=== PATIENT | female | born 1990 | race Caucasian/White ===

== ENCOUNTER 2019-07-13 19:16 | Emergency (ER) | payer BC ==
[2019-07-13 19:23] VITALS: BMI 24.9
[2019-07-13] MEDS ORDERED: ACETAMINOPHEN 500 MG TABLET (FP) PO ONE (19:27)
[2019-07-13] MEDS ORDERED: ACETAMINOPHEN 325 MG TABLET (FP) ONE (19:31)
--- NOTE | 2019-07-13 19:43 | PDOC ---
History of Present Illness - General Chief Complaint: Pain, Acute Stated Complaint: SENT BY URGENT CARE/PAIN Time Seen by Provider: 07/13/19 19:25 History Source: Patient Exam Limitations: No Limitations - History of Present Illness Initial Comments: 07/13/19 19:40 28y F with no significant PMH presenting to ED with complaints of intermittent L flank pain that started suddenly today. Pt states she feels the urge to urinate and has L flank pain after urinating. The pain is sharp and does not radiate. Associated with nausea. Denies vomiting, diarrhea, constipation, injury , chest pain, sob, fevers, chills, dysuria, hematuria, vaginal bleeding, discharge. Has not had symptoms like this before. She went to urgent care and was told to come to an ER for possible kidney stones. She had a urinalysis done which was negative for and showed RBC in the urine. She received 60mg IM toradol which helped with the pain 1h ago. Mother has a history of kidney stones. PMD: PMH: none PSH: none Meds: OCPs Allergies: nkda Social: occasional alcohol use 07/13/19 22:01 Past History - Past Medical History Allergies/Adverse Reactions: Allergies Allergy/AdvReac Type Severity Reaction Status Date / Time No Known Allergies Allergy Verified 07/13/19 19:23 Home Medications: Ambulatory Orders Ibuprofen 600 mg PO TID #21 tablet 07/13/19 Sulfamethoxazole/Trimethoprim [Bactrim Ds -] 1 tab PO BID #10 tablet 07/13/19 COPD: No - Psycho Social/Smoking Cessation Hx Smoking History: Never smoked Review of Systems - Review of Systems Constitutional: No: Symptoms Reported HEENTM: No: Symptoms Reported Respiratory: No: Symptoms reported Cardiac (ROS): No: Symptoms Reported ABD/GI: Yes: Nausea : Yes: Flank Pain, Urgency. No: Burning, Dysuria Musculoskeletal: No: Symptoms Reported Integumentary: No: Symptoms Reported *Physical Exam - Vital Signs Last Vital Signs Temp Pulse Resp BP Pulse Ox 98.6 F 78 19 121/75 100 07/13/19 19:20 07/13/19 19:20 07/13/19 19:20 07/13/19 19:20 07/13/19 19:20 - Physical Exam General Appearance: Yes: Nourished, Appropriately Dressed. No: Apparent Distress HEENT: positive: EOMI, IRINA, Normal ENT Inspection Neck: positive: Trachea midline, Supple Respiratory/Chest: positive: Lungs Clear, Normal Breath Sounds. negative: Crackles, Rales, Rhonchi, Stridor, Wheezing Gastrointestinal/Abdominal: positive: Normal Bowel Sounds, Soft. negative: Tender Musculoskeletal: negative: CVA Tenderness Extremity: positive: Normal Capillary Refill. negative: Calf Tenderness, Erythema Integumentary: positive: Normal Color, Dry, Warm Neurologic: positive: presales consultant II-XII NML intact, Fully Oriented, Alert, Normal Mood/ Affect, Normal Response, Motor Strength 01/12 ED Treatment Course - LABORATORY CBC & Chemistry Diagram: 07/13/19 19:50 07/13/19 19:50 Medical Decision Making - Medical Decision Making 07/13/19 21:50 28y F presenting with L flank pain and urgency vitals wnl ddx includes but not limited to stone, uti, pyelo, ovarian torsion, colitis, msk given history and exam, likely stone. will order cbc, cmp, ua, ucx, upreg iv fluids, tylenol ct spiral if ct negative, will perform pelvic and tvus labs wnl. ua 3+ blood, some bacteria, few wbc. low suspicion for septic stone ct shows stone at l uvj or in bladder 4x4mm pending radiologist read pt comfortable, will provide uro referral, strainer and rx for ibuprofen. provided return precautions. has history of utis, will prescribe bactrim. dispo: home Discharge - Discharge Information Problems reviewed: Yes Clinical Impression/Diagnosis: Ureteral calculus, left Condition: Improved Disposition: HOME - Admission No - Additional Discharge Information Prescriptions: Ibuprofen 600 mg PO TID #21 tablet Sulfamethoxazole/Trimethoprim [Bactrim Ds -] 1 tab PO BID #10 tablet - Follow up/Referral Referrals: Francisco Laboy MD [Primary Care Provider] - Sheldon Jacobs MD [Staff Physician] - David Boswell MD [Staff Physician] - Saeed Goyal MD [Staff Physician] - Chato Cunningham MD [Staff Physician] - - Patient Discharge Instructions Patient Printed Discharge Instructions: DI for Kidney Stones Additional Instructions: You were seen in the emergency room for left flank pain. You have a stone at the junction of the ureter and bladder. This should pass. I have sent a prescription for ibuprofen to your pharmacy, take as directed. Please use the strainer when you urinate. I recommend making an appointment with a urologist; information is provided below. Please try to schedule an appointment in 2-3 days. Let them know you were seen in the emergency room for a stone. A prescription for Bactrim was also sent to your pharmacy, take as directed. Drink plenty of fluids! Come back to the emergency room if you have worsening pain, if you develop fever , if you are unable to urinate or if any new or concerning symptom develops. Thank you - Post Discharge Activity Work/Back to School Note: Back to Work
[2019-07-13] MEDS ORDERED: SODIUM CHLORIDE 1,000 ML IV STA (19:45)
[2019-07-13 20:02] LABS: BASO % 0.6 % (0-2.0); EOS % 1.4 % (0-4.5); HEMATOCRIT 37.6 % (32.4-45.2); HEMOGLOBIN 13.1 GM/dL (10.7-15.3); LYMPH % 33.1 % (8-40); MCH 31.6 pg (25.7-33.7); MCHC 34.9 g/dl (32.0-36.0); MEAN CELL VOLUME 90.4 fl (80-96); MONO % 4.8 % (3.8-10.2); NEUT % 60.1 % (42.8-82.8); PLATELET COUNT 296 K/MM3 (134-434); RBC 4.15 M/mm3 (3.60-5.2); RDW 12.6 % (11.6-15.6); WHITE BLOOD COUNT 9.8 K/mm3 (4.0-10.0)
[2019-07-13 20:19] LABS: EPI CELLS 1.2 /HPF (0-5/HPF); HYALINE CASTS 1 /lpf (0-8); URINE APPEARANCE CLEAR; URINE BACTERIA 29.3 /hpf (NEGATIVE); URINE BILIRUBIN NEGATIVE (NEGATIVE); URINE COLOR YELLOW; URINE GLUCOSE (UA) NEGATIVE (NEGATIVE); URINE KETONE 1+ (NEGATIVE); URINE LEUK ESTERASE NEGATIVE (NEGATIVE); URINE NITRITE NEGATIVE (NEGATIVE); URINE PROTEIN NEGATIVE (NEGATIVE); URINE RBC 201 /hpf (0-4); URINE WBC 2 /hpf (0-5)
[2019-07-13 20:31] LABS: ALBUMIN 3.7 g/dl (3.4-5.0); BILIRUBIN,TOTAL 0.2 mg/dL (0.2-1); CALCIUM 8.9 mg/dL (8.5-10.1); CREATININE 0.8 mg/dL (0.55-1.3); POTASSIUM 4.1 mmol/L (3.5-5.1); TOT PROT 7.2 g/dl (6.4-8.2)
--- NOTE | 2019-07-13 20:53 | PDOC ---
Attending Attestation - Resident Resident Name: Rosa Ceballos - ED Attending Attestation I have performed the following: I have examined & evaluated the patient, The case was reviewed & discussed with the resident, I agree w/resident's findings & plan - HPI HPI: 07/13/19 20:53 Pt comes with flank pain 07/13/19 22:11 Pt complains of burning on urination and UTI like sx. She states that she hasn't had a UTI in a while but that she had one a few months ago and that she is prone to UTIs Pt doesn't drink as much water as she ought to. - Physicial Exam PE: 07/13/19 22:12 Agree with resident exam. Pt has no fever and she has lower left flank pain - Medical Decision Making 07/13/19 22:05 Patient Name: TRUPTI DALE THIS IS A PRELIMINARY REPORT FROM [facility] EXAM: CT abdomen and pelvis without contrast IMAGES:[id number] DATE OF EXAM: 2019-07-13 20:51:00 REASON FOR EXAM: Rule out stone COMPARISON: None Findings: The liver, contracted gallbladder, pancreas, adrenal glands, and spleen are grossly unremarkable. *A few tiny bilateral intrarenal calculi. Distal ureters are poorly visualized. 4 mm calcification at posterior margin of left urinary bladder on axial image 124, suspicious for distal left ureteral calculus. No barry hydronephrosis. No AAA. Moderate gas and stool in the colon. No evidence for diverticulitis, appendicitis, small bowel obstruction, free fluid, or free air. 07/13/19 22:12 Pt will go with bsctrim DS BID x 7 days and NSAIDS for pain. Plenty of fluid by mouth and a strainer to pee in to collect the stone. Follow with PMD.
[2019-07-13 22:19] VITALS: BP 118/62; PULSE 77; TEMP 98.1
== END 2019-07-13 22:10 | disposition home or self-care (01) ==
LOC: JER 19:16
PROC: 3E0337Z Introduction of Electrolytic and Water Balance Substance into Peripheral Vein, Percutaneous Approach (ICD-10-PCS; principal; 2019-07-13)
DX: N20.1 Calculus of ureter (principal)
CPT/HCPCS: 36415; 74176-TC; 80053; 81003; 84703; 85025; 87086; 99283-25; J7030